=== PATIENT | female | born 1955 ===

== ENCOUNTER 2019-07-31 14:49 | Emergency (ER) | payer OTHER ==
[~2019-07-31] VITALS: Ht 160 cm; Wt 86.2 kg
[2019-07-31] MEDS ORDERED: FORTAMET500 MG (15:21)
[2019-07-31] MEDS ORDERED: ADULT ASPIRIN81 MG (15:21)
[2019-07-31] MEDS ORDERED: METROPOLOL (15:22)
[2019-07-31] MEDS ORDERED: SILVASTATIN (15:23)
[2019-07-31] MEDS ORDERED: LISINOPRIL (15:24)
[2019-07-31] MEDS ORDERED: NORVASC (15:24)
== END 2019-07-31 19:13 | disposition home or self-care (01) ==
LOC: ER 14:49
DX: R10.2 Pelvic and perineal pain (principal)